=== PATIENT | female | born 1990 | race Two or more races ===

== ENCOUNTER 2018-12-30 17:29 | Emergency (ER) | payer OTHER ==
[~2018-12-30] VITALS: Ht 162.6 cm; Wt 95.3 kg
[2018-12-30 17:44] VITALS: BP 111/80
== END 2018-12-30 22:42 | disposition home or self-care (01) ==
LOC: ER 17:29
DX: S16.1XXA Strain of muscle, fascia and tendon at neck level, initial encounter (principal); V49.49XA Driver injured in collision with other motor vehicles in traffic accident, initial encounter; Y93.89 Activity, other specified; Y99.8 Other external cause status; Y92.89 Other specified places as the place of occurrence of the external cause

== ENCOUNTER → 2024-06-19 | Day surgery (SDC) | payer BC ==
[~2024-06-19] VITALS: Ht 162.6 cm; Wt 113.4 kg
[~2024-06-19] MED LIST: BUPIVACAINE HCL 50 ML ONE; ERGO1CAP23 PO; ETOMIDATE (2MG/ML) 20ML VIAL IV ONE; GLYCOPYRROLATE 0.2 MG/ML 1ML VIAL ONE; HEPARIN SODIUM (PORCINE) 5000 UNITS/ML 1ML VIAL SC ONE; HYDROmorphone HCL 2 MG/ML VL/or syr IV PRN; HYDROmorphone HCL 2 MG/ML VL/or syr ONE; KETAMINE 50mg/ML 1ml syringe ONE; KETOROLAC TROMETH 30 MG/ML 1ML VIAL ONE; LIDOCAINE 1% INJ PF 5ML AMP ONE; MIDAZOLAM HCL 2MG/2ML 2ml VIAL (1mg/ml) ONE; NORETAB32 PO; PROPOFOL 10 MG/ML 20 ML IV ONE; ROCURONIUM 10MG/ML 10ML VIAL IV ONE; SUGAMMADEX 200mg/2ml Vial (100MG/ML) IV ONE; ceFAZolin 2 GM/D5W100ml 100 ML IV ONE; ePHEDrine SULFATE 50 MG/ML AMP ONE; fentaNYL CITRATE 100 MCG/2 ML VL ONE
[2024-06-19] MEDS: HEPARIN SODIUM (PORCINE) 5000 UNITS/ML 1ML VIAL ONE (07:15)
[2024-06-19 07:19] LABS: Basophils # (auto) 0.2 10 ^3/uL (0-0.2); Basophils % (auto) 1.4 % (0.0-2.0); Eosinophils # (auto) 0.2 10 ^3/uL (0-0.8); Eosinophils % (auto) 1.7 % (0.0-7.0); Hematocrit 40.3 % (36.0-46.0); Lymphocytes # (auto) 2.5 10 ^3/uL (0.4-5.4); Lymphocytes % (auto) 23.4 % (10.0-50.0); Mean Corpuscular Hemoglobin 31.3 pg (28.0-32.0); Mean Corpuscular Hgb Conc. 34.7 g/dL (32.0-36.0); Mean Corpuscular Volume 90.3 fL (80.0-100.0); Monocytes # (auto) 0.7 10 ^3/uL (0-1.3); Monocytes % (auto) 6.3 % (0.0-12.0); Neutrophils # (auto) 7.3 10 ^3/uL (1.6-8.6); Neutrophils % (auto) 67.2 % (37.0-80.0); Nucleated Red Blood Cells % 0.3 %; Platelet Count (auto) 317 10^3/uL (140-450); Red Blood Cells 4.46 10^6/uL (4.0-5.20); Red Cell Distribution Width 13.7 % (11.8-14.3); White Blood Cell 10.9 10^3/uL (4.4-10.8)
[2024-06-19 07:25] LABS: Chloride 106 mmol/L (98-107); Potassium 3.9 mmol/L (3.5-5.1); Sodium 139 mmol/L (136-145)
[2024-06-19 07:26] LABS: Anion Gap 7 (5-15); Calcium 9.5 mg/dL (8.7-10.4); Carbon Dioxide 26 mmol/L (20-31)
[2024-06-19 07:31] LABS: BUN/Creatinine Ratio 16.7 (10.0-20.0); Blood Urea Nitrogen 12 mg/dL (9-23)
[2024-06-19 07:32] LABS: Glucose 122 mg/dL (74-106)
[2024-06-19 07:35] LABS: INR 0.96 (0.9-1.15); Partial Thromboplastin Time 28.6 SEC (24.5-34.5); Prothrombin Time 10.2 sec (9.3-11.8)
[2024-06-19] MEDS: LIDOCAINE HCL (LOCAL ANESTH.) 0.5 % 50ML MDV IJ ONE (08:16)
[2024-06-19 08:58] VITALS: PULSE 117; RESP 12; TEMP 97.4; O2SAT 100
[2024-06-19] MEDS: ONDANSETRON HCL 4 MG/2 ML VIAL IV ONE (10:00)
--- NOTE | 2024-06-19 10:13 | DVHOP ---
DATE OF SURGERY: 06/19/2024 PREOPERATIVE DIAGNOSIS: Supraumbilical ventral hernia. POSTOPERATIVE DIAGNOSIS: Incarcerated 1.5 cm supraumbilical ventral hernia. PROCEDURE: Primary repair of incarcerated supraumbilical ventral hernia. SURGEON: Ceferino Alex MD. TRANSPORT TRUCK DRIVER: None. ANESTHESIOLOGIST: Dr. Stone. ANESTHESIA: General. INTRAOPERATIVE FINDINGS: Incarcerated preperitoneal fat within a 1.5 cm supraumbilical ventral hernia. ESTIMATED BLOOD LOSS: Minimal. INTRAVENOUS FLUIDS: Per anesthesia charting. URINE OUTPUT: Not recorded given Dowling catheter was not inserted. DRAINS: None. IMPLANTS: None. SPECIMENS: None. COMPLICATIONS: None. Procedure well tolerated and transferred to recovery room in stable condition. INDICATION FOR PROCEDURE: The patient is a 33-year-old female with a supraumbilical hernia. Based on the above-mentioned information, she was recommended to undergo repair possibly with mesh. The procedure, risks, and benefits were explained in a detailed and extensive fashion. All her questions were answered. She understood and agreed to proceed. DESCRIPTION OF PROCEDURE: The patient was taken to the operating room. She was placed in the dorsal decubitus position on the operating table. Once adequate anesthesia was achieved, the abdomen was widely prepped and draped in usual sterile fashion. Using 1% lidocaine/0.5% Marcaine, the area was anesthetized. A 4-5 cm supraumbilical midline incision was made with a #15 blade. The dermis and subcutaneous tissue were incised to the level of the fascia and circumferentially around the hernia sac. The patient was noted to have an incarcerated preperitoneal fat within the hernia. The hernia sac and preperitoneal fat were excised. Given the small size of the hernia, it was decided to repair in a primary fashion with several interrupted 0 Vicryl sutures in a [id number] fashion. The wound was washed and dried. to ensure there was no active bleeding or injury to internal organs. The subcutaneous tissue was then closed with several interrupted 3-0 Vicryl sutures. The same was done with the dermis. The skin was closed with 4-0 Monocryl in a subcuticular fashion and sterile glue was applied. The patient tolerated well procedure. There were no complications. She was successfully extubated in the operating room and transferred to recovery room in stable condition. Ceferino Alex MD WBR/JPS/ODETTE TID: [id number] RECEIPT: [id number]
[2024-06-19 10:25] VITALS: BP 119/71; PULSE 87; RESP 15; O2SAT 95
== END | disposition home or self-care (01) ==
LOC: SUR 06:25
DX: K43.6 Other and unspecified ventral hernia with obstruction, without gangrene (principal); E66.01 Morbid (severe) obesity due to excess calories; Z68.41 Body mass index [BMI] 40.0-44.9, adult
CPT/HCPCS: 36415; 49592; 80048; 85025; 85610; 85730; 86850; 86900; 86901; J1171; J1644; J1885; J2250; J2405; J2704; J3010; J3490

== ENCOUNTER 2025-02-22 08:51 | Emergency (ER) | payer BC ==
[~2025-02-22] VITALS: Ht 162.6 cm; Wt 113.0 kg
[~2025-02-22 08:51] MED LIST changes: -BUPIVACAINE HCL 50 ML ONE; -ETOMIDATE (2MG/ML) 20ML VIAL IV ONE; -GLYCOPYRROLATE 0.2 MG/ML 1ML VIAL ONE; -HEPARIN SODIUM (PORCINE) 5000 UNITS/ML 1ML VIAL SC ONE; -HYDROmorphone HCL 2 MG/ML VL/or syr IV PRN; -HYDROmorphone HCL 2 MG/ML VL/or syr ONE; -KETAMINE 50mg/ML 1ml syringe ONE; -KETOROLAC TROMETH 30 MG/ML 1ML VIAL ONE; -LIDOCAINE 1% INJ PF 5ML AMP ONE; -MIDAZOLAM HCL 2MG/2ML 2ml VIAL (1mg/ml) ONE; -PROPOFOL 10 MG/ML 20 ML IV ONE; -ROCURONIUM 10MG/ML 10ML VIAL IV ONE; -SUGAMMADEX 200mg/2ml Vial (100MG/ML) IV ONE; -ceFAZolin 2 GM/D5W100ml 100 ML IV ONE; -ePHEDrine SULFATE 50 MG/ML AMP ONE; -fentaNYL CITRATE 100 MCG/2 ML VL ONE
--- NOTE | 2025-02-22 09:11 | ED.PDOC ---
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 She is currently 10-12 weeks , has not seen OBGYN, P:1. Patient states she began experiencing mild vaginal bleeding yesterday, woke up today noticed bleeding worsened, passed large clot, has 2/10 pelvic pain. Denies any fever, chills, nausea, vomiting, diarrhea, headache, dizziness, dysuria, chest pain, shortness of breath. No other symptoms or modifying factors present at this time. Chief Complaint: Vaginal Bleed Time Seen by MD: 09:00 Reviewed Notes: Medications, Allergies Allergies: Coded Allergies: NO KNOWN ALLERGIES (Unverified , 12/30/18) Home Meds Reported Medications Norethindrone Acetate-Ethinyl (LO LOESTRIN FE) Tab, 0.35 MG PO DAILY, #28 TAB 11 Refills 06/16/24 Ergocalciferol (VITAMIN D 60718 UNIT) 50,000 [place], [address] UNIT PO QWEEKLY, CAP 06/16/24 Information Source: Patient, Spouse Mode of Arrival: Ambulatory Timing: Days Prehospital treatment: None Vaginal Discharge: None Vaginal Lesions: None Bleeding Quality: Clotted Vaginal Mass: None Onset Of Mass/Bleeding: Spontaneous Sexual Activity: Last Consensual [place]: Unknown Control: None History of: Current Symptoms of Possible : Missed Period Associated Signs and Symptoms: Vaginal Bleeding, Cramping Past Medical History PAST MEDICAL HISTORY: Denies Surgical History: Hernia Repair DOUBLE NEEDLE STITCHER History: No Pertinent DOUBLE NEEDLE STITCHER History Family History Family History: Reviewed,noncontributory to illness, No family hx of Cancer, No family hx of DM, No family hx of Heart samara, No family hx of HTN, No family hx ofKidney samara, No family hx of Liver samara, No family hx of Lung samara, No family hx of Stroke Social History Smoker: Non-Smoker Alcohol: Occasionally Drugs: Denies Drug Use Lives In: Home Constitutional: denies: chills, diaphoresis, fatigue, fever, malaise, sweats, weakness, others EENTM: denies: blurred vision, double vision, ear bleeding, ear discharge, ear drainage, ear pain, ear ringing, eye pain, eye redness, hearing loss, mouth pain, mouth swelling, nasal discharge, nose bleeding, nose congestion, nose pain, photophobia, tearing, throat pain, throat swelling, voice changes, others Respiratory: denies: cough, hemoptysis, orthopnea, SOB at rest, shortness of breath, SOB with excertion, stridor, wheezing, others Cardiovascular: denies: chest pain, dizzy spells, diaphoresis, Dyspnea on exertion, edema, irregular heart beat, left arm pain, lightheadedness, palpitations, PND, syncope, others Gastrointestinal: denies: abdomen distended, abdominal pain, blood streaked bowels, constipated, diarrhea, dysphagia, difficulty swallowing, hematemesis, melena, nausea, poor appetite, poor fluid intake, rectal bleeding, rectal pain, vomiting, others Genitourinary: reports: abnormal vagina bleeding, ; denies: burning, dyspareunia, dysuria, flank pain, frequency, hematuria, incontinence, pain, vagina discharge, urgency, others Neurological: denies: dizziness, fainting, headache, left sided numbness, left sided weakness, numbness, paresthesia, pre-existing deficit, right sided numbness, right sided weakness, seizure, speech problems, tingling, tremors, weakness, others Musculoskeletal: denies: back pain, gout, joint pain, joint swelling, muscle pain, muscle stiffness, neck pain, others Integumetry: denies: bruises, change in color, change in hair/nails, dryness, laceration, lesions, lumps, rash, wounds, others Allergic/Immunocompromised: denies: Difficulty Healing, Frequent Infections, Hives, Itching, others Hematologic/Lymphatic: denies: anemia, blood clots, easy bleeding, easy bruising, swollen glands, others Endocrine: denies: excessive hunger, excessive sweating, excessive thirst, excessive urination, flushing, intolerance to cold, intolerance to heat, unexplained weight gain, unexplained weight loss, others Psychiatric: denies: anxiety, bipolar disorder, depression, hopeless, panic disorder, schizophrenia, sleepless, suicidal, others All Other Systems: Reviewed and Negative Physical Exam General Appearance: No Apparent Distress, Obese HEENT: Normal ENT Inspection, Pharynx Normal, TMs Normal Neck: Full Range of Motion, Non-Tender, Normal, Normal Inspection Respiratory: Chest Non-Tender, Lungs Clear, No Accessory Muscle Use, No Respiratory Distress, Normal Breath Sounds Cardiovascular: No Edema, No JVD, No Murmur, No Gallop, Normal Peripheral Pulses, Regular Rate/Rhythm Breast Exam: Deferred Gastrointestinal: No Organomegaly, Non Tender, No Pulsatile Mass, Normal Bowel Sounds, Soft Genitalia: Deferred Pelvic: Deferred Rectal: Deferred Extremities: No calf tenderness, Normal capillary refill, Normal inspection, No rmal range of motion, Non-tender, No pedal edema Musculoskeletal : Apperance: Normal Neurologic: Alert, receiving associate II-XII nml as Tested, No Motor Deficits, Normal Affect, Normal Mood, No Sensory Deficits Cerebellar Function: Normal Reflexes: Normal Skin: Dry, Normal Color, Warm Lymphatic: No Adenopathy Was a procedure done? Was a procedure done?: No Differential Diagnosis (DOUBLE NEEDLE STITCHER) Vaginal Bleeding: - Complete, - Incomplete, - Threatened X-Ray, Labs, Meds, VS Vital Signs Date Time Temp Pulse Resp B/P (MAP) Pulse Ox O2 Delivery O2 Flow Rate FiO2 02/22/25 11:47 98.3 62 17 114/75 (88) 96 98.3 02/22/25 08:53 97.6 84 16 129/95 96 97.6 Lab Test 02/22/25 11:16 02/22/25 09:35 Range/Units Urine Color Colorless Yellow Urine Clarity Clear Clear Urine pH 6.5 5.0-9.0 Urine Specific [place] 1.010 1.001-1.035 Urine Protein Negative Negative Urine Ketones Negative Negative Urine Blood 3+ H Negative /uL Urine Nitrite Negative Negative Urine Bilirubin Negative Negative Urine Urobilinogen Normal Negative mg/dL Urine Leukocyte Esterase Negative Negative /uL Urine RBC 3 0 - 4 /hpf Urine Microscopic WBC 3 0-5 /HPF Urine Squamous Epithelial Cells Few <5 /hpf Urine Bacteria None seen None Seen /hpf Urine Glucose Normal Normal mg/dL White Blood Count 7.1 4.4-10.8 10^3/uL Red Blood Count 4.39 4.0-5.20 10^6/uL Hemoglobin 14.0 12.2-16.2 g/dL Hematocrit 40.4 36.0-46.0 % Mean Corpuscular Volume 92.2 80.0-100.0 fL Mean Corpuscular Hemoglobin 32.0 28.0-32.0 pg Mean Corpuscular Hemoglobin Concent 34.7 32.0-36.0 g/dL Red Cell Distribution Width 13.8 11.8-14.3 % Platelet Count 294 140-450 10^3/uL Mean Platelet Volume 9.0 6.9-10.8 fL Neutrophils (%) (Auto) 67.2 37.0-80.0 % Lymphocytes (%) (Auto) 24.1 10.0-50.0 % Monocytes (%) (Auto) 6.1 0.0-12.0 % Eosinophils (%) (Auto) 1.7 0.0-7.0 % Basophils (%) (Auto) 0.9 0.0-2.0 % Neutrophils # (Auto) 4.7 1.6-8.6 10 ^3/uL Lymphocytes # (Auto) 1.7 0.4-5.4 10 ^3/uL Monocytes # (Auto) 0.4 0-1.3 10 ^3/uL Eosinophils # (Auto) 0.1 0-0.8 10 ^3/uL Basophils # (Auto) 0.1 0-0.2 10 ^3/uL Nucleated Red Blood Cells 0.1 % Beta HCG, Quantitative 4447.2 H 1.5-4.2 mIU/mL PROCEDURE(s): OB4US - OB ULTRASOUND COMP LESS 14WKS Gestational sac measures 1.1 cm that would be consistent with 5 weeks 2 days no yolk sac no pole no heart rate IMPRESSION: 1. No IUP visualized. 2. Possible gestational sac is visualized measuring 1.1 cm consistent with 5 weeks 2 days no pole or heart rate. 3. Trace fluid noted in the cervix 4. Right ovary contains a complex hypoechoic mass with peripheral vascularity measuring 2.3 x 2 x 1.7 cm. Can not entirely exclude ectopic . Recommend clinical as well as possible ultrasound follow-up. 5. Left ovary appears normal The patient's quantitative hCG is 4447.2 The CBC is within normal limits The urine test is negative We did speak with Dr. Wilson and she did review the ultrasound The patient is to return to the emergency department's within two days and has a repeat quantitative hCG. The patient understands and agrees with the management. Images Reviewed?: Images reviewed and evaluated by me Time of 1ST Reevaluation: 09:30 Reevaluation 1ST: Unchanged Time of 2ND Reevaluation: 12:20 (pt was discharged, pt had US which showed pt does not have ectopic , spoke with Dr Wilson, pt to have follow up Beta- HCG in 2x days at OB office) Reevaluation 2ND: Improved Patient Education/Counseling: Diagnosis, Treatment, Prognosis, Need For Follow Up Family Education/Counseling: Diagnosis, Treatment, Prognosis, Need For Follow Up Departure 1 Departure Time of Disposition: 12:33 Impression: Primary Impression: Blighted ovum Disposition: HOME / SELF CARE / HOMELESS Condition: Fair Discharged With: Self Critical Care Note Critical Care Time?: No Stability Stability form required: No Heart Score Heart Score: Heart Score Response (Comments) Value History N/A 0 EKG N/A 0 Age N/A 0 Risk Factors N/A 0 Troponin N/A 0 Total 0 I personally scribed for EDMOND FLOREZ MD ([email or web address]) on 02/22/25 at 09:11. Electronically submitted by Ashley Mccormack ([email or web address]). I personally scribed for EDMOND FLOREZ MD ([email or web address]) on 02/22/25 at 11:50. Electronically submitted by Ashley Mccormack ([email or web address]). I personally scribed for EDMOND FLOREZ MD ([email or web address]) on 02/22/25 at 12:21. Electronically submitted by Juli Marcial ([email or web address]). EDMOND FLOREZ MD Feb 22, 2025 09:11
[2025-02-22 09:48] LABS: Hematocrit 40.4 % (36.0-46.0); Hemoglobin 14.0 g/dL (12.2-16.2); Mean Corpuscular Hemoglobin 32.0 pg (28.0-32.0); Mean Corpuscular Volume 92.2 fL (80.0-100.0); Nucleated Red Blood Cells % 0.1 %
--- NOTE | 2025-02-22 11:22 | DVH ---
INDICATION: vag bleeding TECHNIQUE: Multiple real-time grayscale transabdominal sonographic images along with color and duplex Doppler of the uterus and ovaries were obtained. COMPARISON: None FINDINGS: The uterus measures 9 x 5.3 x 4.7 cm. The endometrial stripe gestational sac. The right ovary measures 3 x 2.1 x 2.1 cm. Volume of the right ovary is 7.2 cc. 2.3 by 2 x 1.7 cm mi xed echogenic mass in the right ovary may represent a hemorrhagic cyst The left ovary measures 2.1 x 1.5 x 1.9 cm. Volume of the left ovary 8.4 cc Subsequent color and duplex Doppler interrogation of the ovaries demonstrated symmetric vascular flow to both ovaries, though this does not exclude the possibility of torsion due to the dual blood suppl y. Gestational sac measures 1.1 cm that would be consistent with 5 weeks 2 days no yolk sac no liza e no heart rate IMPRESSION: 1. No IUP visualized. 2. Possible gestational sac is visualized measuring 1.1 cm consistent with 5 weeks 2 days no p ole or heart rate. 3. Trace fluid noted in the cervix 4. Right ovary contains a complex hypoechoic mass with peripheral vascularity measuring 2.3 x 2 x 1. 7 cm. Can not entirely exclude ectopic . Recommend clinical as well as possible ultrasound follow-up. 5. Left ovary appears normal
[2025-02-22 11:30] LABS: Urine Protein, UAD Negative (Negative)
[2025-02-22 13:22] VITALS: BP 141/96; PULSE 78; RESP 17; TEMP 98.1; O2SAT 96
== END 2025-02-22 13:24 | disposition home or self-care (01) ==
LOC: ER 08:51
DX: O02.0 Blighted ovum and nonhydatidiform mole (principal); F10.90 Alcohol use, unspecified, uncomplicated; Z3A.12 12 weeks gestation of pregnancy; Z79.3 Long term (current) use of hormonal contraceptives; Z98.890 Other specified postprocedural states; Z79.899 Other long term (current) drug therapy; Y90.9 Presence of alcohol in blood, level not specified
CPT/HCPCS: 36415; 76801; 76817; 81001; 84702; 85025

== ENCOUNTER 2025-02-28 10:34 | Emergency (ER) | payer BC ==
[~2025-02-28] VITALS: Ht 162.6 cm; Wt 89.3 kg
--- NOTE | 2025-02-28 11:36 | ED.PDOC ---
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 She is . Patient does not have a instrumentation chemist doctor. She reports that she is still having vaginal bleeding. She was seen on the and had an ultrasound done and blood work done. Reviewing the previous medical records shows that an IUP was not seen. Ectopic was not excluded. Patient's hCG level was around 4400. Rh blood typing was not found. Patient denies having any pain, dizziness, but is still spotting. She states she passed a blood clot. Chief Complaint: Vaginal Bleed Time Seen by MD: 11:06 Allergies: Coded Allergies: NO KNOWN ALLERGIES (Unverified , 12/30/18) Home Meds Reported Medications Norethindrone Acetate-Ethinyl (LO LOESTRIN FE) Tab, 0.35 MG PO DAILY, #28 TAB 11 Refills 06/16/24 Ergocalciferol (VITAMIN D 25405 UNIT) 50,000 [place], [address] UNIT PO QWEEKLY, CAP 06/16/24 Past Medical History PAST MEDICAL HISTORY: Denies Past Medical History (Other): None Surgical History: Hernia Repair PR INTERNSHIP History: No Pertinent PR INTERNSHIP History Family History Family History: Reviewed,noncontributory to illness, No family hx of Cancer, No family hx of DM, No family hx of Heart samara, No family hx of HTN, No family hx ofKidney samara, No family hx of Liver samara, No family hx of Lung samara, No family hx of Stroke Social History Smoker: Non-Smoker Alcohol: Occasionally Drugs: Denies Drug Use Lives In: Home Constitutional: denies: chills, diaphoresis, fatigue, fever, malaise, sweats, weakness, others EENTM: denies: blurred vision, double vision, ear bleeding, ear discharge, ear drainage, ear pain, ear ringing, eye pain, eye redness, hearing loss, mouth pain, mouth swelling, nasal discharge, nose bleeding, nose congestion, nose pa in, photophobia, tearing, throat pain, throat swelling, voice changes, others Respiratory: denies: cough, hemoptysis, orthopnea, SOB at rest, shortness of breath, SOB with excertion, stridor, wheezing, others Cardiovascular: denies: chest pain, dizzy spells, diaphoresis, Dyspnea on exertion, edema, irregular heart beat, left arm pain, lightheadedness, palpitations, PND, syncope, others Gastrointestinal: denies: abdomen distended, abdominal pain, blood streaked bowels, constipated, diarrhea, dysphagia, difficulty swallowing, hematemesis, melena, nausea, poor appetite, poor fluid intake, rectal bleeding, rectal pain, vomiting, others Genitourinary: reports: , others (Vaginal bleeding) Neurological: denies: dizziness, fainting, headache, left sided numbness, left sided weakness, numbness, paresthesia, pre-existing deficit, right sided numbness, right sided weakness, seizure, speech problems, tingling, tremors, weakness, others Musculoskeletal: denies: back pain, gout, joint pain, joint swelling, muscle pain, muscle stiffness, neck pain, others Integumetry: denies: bruises, change in color, change in hair/nails, dryness, laceration, lesions, lumps, rash, wounds, others Allergic/Immunocompromised: denies: Difficulty Healing, Frequent Infections, Hives, Itching, others Hematologic/Lymphatic: denies: anemia, blood clots, easy bleeding, easy bruising, swollen glands, others Endocrine: denies: excessive hunger, excessive sweating, excessive thirst, excessive urination, flushing, intolerance to cold, intolerance to heat, unexplained weight gain, unexplained weight loss, others Psychiatric: denies: anxiety, bipolar disorder, depression, hopeless, panic disorder, schizophrenia, sleepless, suicidal, others All Other Systems: Reviewed and Negative Physical Exam General Appearance: No Apparent Distress, Normal HEENT: Normal ENT Inspection, Pharynx Normal, TMs Normal Neck: Full Range of Motion, Non-Tender, Normal, Normal Inspection Respiratory: Chest Non-Tender, Lungs Clear, No Accessory Muscle Use, No Respiratory Distress, Normal Breath Sounds Cardiovascular: No Edema, No JVD, No Murmur, No Gallop, Normal Peripheral Pulses, Regular Rate/Rhythm Breast Exam: Deferred Gastrointestinal: No Organomegaly, Non Tender, No Pulsatile Mass, Normal Bowel Sounds, Soft Genitalia: Deferred Pelvic: Deferred Rectal: Deferred Extremities: No calf tenderness, Normal capillary refill, Normal inspection, Normal range of motion, Non-tender, No pedal edema Musculoskeletal : Apperance: Normal Neurologic: Alert, maintenance painter apprentice II-XII nml as Tested, No Motor Deficits, Normal Affect, Normal Mood, No Sensory Deficits Cerebellar Function: Normal Reflexes: Normal Skin: Dry, Normal Color, Warm Lymphatic: No Adenopathy Was a procedure done? Was a procedure done?: No Differential Diagnosis (PR INTERNSHIP) Vaginal Bleeding: - Complete, - Incomplete, - Inevitable, - Missed, - Threatened, Abruptio Placentae, Blood Loss Anemia, Ectopic Mass / Lesion: N/A Vaginal Discharge: N/A X-Ray, Labs, Meds, VS Vital Signs Date Time Temp Pulse Resp B/P (MAP) Pulse Ox O2 Delivery O2 Flow Rate FiO2 02/28/25 11:29 98.7 72 16 125/76 (92) 96 98.7 02/28/25 11:29 72 16 96 Room Air 02/28/25 10:35 97.9 86 16 111/85 95 97.9 Lab Test 02/28/25 12:08 02/28/25 12:07 02/28/25 11:05 Range/Units White Blood Count 8.8 4.4-10.8 10^3/uL Red Blood Count 4.42 4.0-5.20 10^6/uL Hemoglobin 14.2 12.2-16.2 g/dL Hematocrit 40.9 36.0-46.0 % Mean Corpuscular Volume 92.4 80.0-100.0 fL Mean Corpuscular Hemoglobin 32.1 H 28.0-32.0 pg Mean Corpuscular Hemoglobin Concent 34.7 32.0-36.0 g/dL Red Cell Distribution Width 14.2 11.8-14.3 % Platelet Count 303 140-450 10^3/uL Mean Platelet Volume 9.4 6.9-10.8 fL Neutrophils (%) (Auto) 67.6 37.0-80.0 % Lymphocytes (%) (Auto) 24.9 10.0-50.0 % Monocytes (%) (Auto) 5.9 0.0-12.0 % Eosinophils (%) (Auto) 1.3 0.0-7.0 % Basophils (%) (Auto) 0.3 0.0-2.0 % Neutrophils # (Auto) 5.9 1.6-8.6 10 ^3/uL Lymphocytes # (Auto) 2.2 0.4-5.4 10 ^3/uL Monocytes # (Auto) 0.5 0-1.3 10 ^3/uL Eosinophils # (Auto) 0.1 0-0.8 10 ^3/uL Basophils # (Auto) 0 0-0.2 10 ^3/uL Nucleated Red Blood Cells 0.1 % Beta HCG, Quantitative 1970.5 H 1.5-4.2 mIU/mL Urine Color Red H Yellow Urine Clarity Ex.turbid Clear Urine pH 6.0 5.0-9.0 Urine Specific [place] 1.013 1.001-1.035 Urine Protein 1+ H Negative Urine Ketones Negative Negative Urine Blood 3+ H Negative /uL Urine Nitrite Negative Negative Urine Bilirubin Negative Negative Urine Urobilinogen Normal Negative mg/dL Urine Leukocyte Esterase 1+ Negative /uL Urine RBC 81911 0 - 4 /hpf Urine WBC Clumps Present None Seen /hpf Urine Microscopic WBC 661 H 0-5 /HPF Urine Squamous Epithelial Cells None seen <5 /hpf Urine Bacteria None seen None Seen /hpf Urine Glucose Normal Normal mg/dL Time of 1ST Reevaluation: 12:30 Reevaluation 1ST: Unchanged Time of 2ND Reevaluation: 13:48 Reevaluation 2ND: Improved Time of 3RD Reevaluation: 14:03 Reevaluation 3RD: Improved Patient Education/Counseling: Diagnosis, Treatment, Prognosis, Need For Follow Up Family Education/Counseling: No Family Present Comments This is a patient who is 10 weeks who is undergoing irritable miscarriage. The 1st ultrasound did not show an IUP but ectopic can not be excluded. The repeat ultrasound today at the bedside now shows that she has no products of conceptions and that there is clots in the endocervical area. Patient is feeling better however she would likely to be passing more clots as part of the process to complete her miscarriage. I will reassess her again to make sure she continues to improve. Patient had passed a clot and feels completely relieved. She no longer has any cramps. Examination shows that there is no additional active bleeding. Patient is stable for discharge Departure 1 Departure Time of Disposition: 14:17 Impression: Primary Impression: Miscarriage Additional Impression: Complete miscarriage Disposition: 01 HOME / SELF CARE / HOMELESS Condition: Good Additional Instructions: Rest for the next 24-48 hours. Feel free to return to the emergency room for any concerns. Follow up with your doctor on Saturday. Discharged With: Self Critical Care Note Critical Care Time?: Yes (55 min-critical care time only) Critical care comment: Due to concern for patient acute blood loss and the possibility of ectopic , her care required my has level of attention and readiness. I reassessed her I formulated a care plan, and orders appropriate tests and review the results. I communicated with the nursing staff regarding the plan of care. Who was at the bedside to observe the ultrasound and communicated with the process environmental technician. Spoke to consultants. The total critical care time does not include any procedures Stability Stability form required: No JOSEFINA RUIZ MD Feb 28, 2025 11:36
[2025-02-28 13:08] LABS: Hematocrit 40.9 % (36.0-46.0); Hemoglobin 14.2 g/dL (12.2-16.2); Mean Corpuscular Hemoglobin 32.1 pg (28.0-32.0); Mean Corpuscular Volume 92.4 fL (80.0-100.0); Nucleated Red Blood Cells % 0.1 %
[2025-02-28 13:59] LABS: Urine Protein, UAD 1+ (Negative); Urine WBC Clumps PRESENT /hpf (None Seen)
--- NOTE | 2025-02-28 15:00 | DVH ---
US OB ULTRASOUND COMP LESS 14WKS HISTORY: vaginal bleeding COMPARISON: US OB ULTRASOUND COMP LESS 14WKS on DOS: 02/22/25, US OB TRANS VAGINAL US on DOS: 5 TECHNIQUE: Transabdominal and transvaginal images with color doppler were obtained of the pelvis. FINDINGS: Uterus: - Measures 11.9 x 4.5 x 4.8 cm in length. - Mass lesions: None - Intrauterine : Absent. - Gestational sac: Absent. - Yolk sac: Absent. - Embryonic pole: Absent. Right ovary: - Not seen. Left ovary: - Not seen. Adnexal masses: None Free fluid: None Other: None IMPRESSION: 8.6 x 5.3 x 5.6 cm echogenic heterogeneous lesion in the cervix with trace endometrial fluid could be an in progress. Continue to follow up pelvic US and beta HCG.
[2025-02-28 15:21] VITALS: BP 94/62; PULSE 109; RESP 15; TEMP 98.2; O2SAT 97
== END 2025-02-28 15:15 | disposition home or self-care (01) ==
LOC: ER 10:34
DX: O03.9 Complete or unspecified spontaneous abortion without complication (principal); F10.90 Alcohol use, unspecified, uncomplicated; Z98.890 Other specified postprocedural states; Z79.3 Long term (current) use of hormonal contraceptives; Z3A.10 10 weeks gestation of pregnancy
CPT/HCPCS: 36415; 76801; 81001; 84702; 85025; 86900; 86901